=== PATIENT | female | born 1960 | race Caucasian/White ===

== ENCOUNTER 2020-08-30 10:14 | Emergency (ER) | payer MEDICARE, OTHER ==
[~2020-08-30 10:14] MED LIST: ENBREL50 MG/1 M1 SQ; NORCO 5-325 TA1 EACH PO; VITAMIN B-121000 MCG PO; VITAMIN D32000 UNI1 PO; ZOCOR20 MG PO
[2020-08-30 11:05] LABS: HEMOGLOBIN 14.2 gm/dl (12.3-15.3); RED BLOOD COUNT 5.44 M/UL (4.00-5.10); WHITE BLOOD COUNT 8.8 K/UL (4.5-11.0)
[2020-08-30 11:25] LABS: BUN/CREATININE RATIO 12 (0-10)
== END 2020-08-30 15:21 | disposition home or self-care (01) ==
LOC: ER1 10:14
PROVIDERS: Emergency Medicine
DX: R10.31 Right lower quadrant pain (principal); R10.11 Right upper quadrant pain; R11.0 Nausea; M06.9 Rheumatoid arthritis, unspecified; Z90.49 Acquired absence of other specified parts of digestive tract; E07.89 Other specified disorders of thyroid
CPT/HCPCS: 80053; 81001; 82550; 82553; 83690; 83874; 84484; 85025; 85379; 96374; 96375; 99284; J2270; J2405; J7030; Q9967

== ENCOUNTER → 2020-09-18 | Outpatient (CLI) | payer MEDICARE, OTHER | LOC: US 10:48 | DX: E04.1 Nontoxic single thyroid nodule (principal) | CPT/HCPCS: 76536 ==

== ENCOUNTER → 2021-12-09 | Outpatient (CLI) | payer MEDICARE ==
[~2021-12-09] MED LIST changes: +ADVIL200 M1 PO; +PREDNISONE10 MG PO
[2021-12-09 11:55] LABS: HEMOGLOBIN 12.2 gm/dl (12.3-15.3); RED BLOOD COUNT 4.97 M/UL (4.00-5.10); WHITE BLOOD COUNT 11.4 K/UL (4.5-11.0)
== END ==
LOC: OPSV2 10:00
PROVIDERS: Obstetrics & Gynecology
DX: Z01.812 Encounter for preprocedural laboratory examination (principal); N95.0 Postmenopausal bleeding
CPT/HCPCS: 81001; 85025

== ENCOUNTER → 2021-12-12 | Day surgery (SDC) | payer MEDICARE, OTHER | END | disposition home or self-care (01) | LOC: OR 06:00 | DX: N84.0 Polyp of corpus uteri (principal); N95.0 Postmenopausal bleeding; E78.5 Hyperlipidemia, unspecified; F32.A Depression, unspecified; Z98.51 Tubal ligation status; Z79.899 Other long term (current) drug therapy; Z88.2 Allergy status to sulfonamides | CPT/HCPCS: 71045; 93005; J1100; J1885; J2001; J2405; J2704; J2795; J3010 ==